=== PATIENT | male | born 1975 | race Caucasian/White ===

== ENCOUNTER → 2016-06-09 | Outpatient (CLI) | payer OTHER ==
[2016-06-09 10:45] LABS: BLOOD UREA NITROGEN 16 mg/dL (7-22); BUN/CREATININE RATIO 13.33 (6-20); CHLORIDE 107 meq/L (98-112); CREATININE 1.2 mg/dL (0.70-1.50); EST GLOMERULAR FILTRATION > 60 (>60 ml/min/1.73m(2)); GLUCOSE 88 mg/dL (78-110); HDL CHOLESTEROL 36 mg/dL (40-150); POTASSIUM 4.3 meq/L (3.8-5.2); SODIUM 140 meq/L (135-145); TRIGLYCERIDES 177 mg/dL (44-200)
[2016-06-09 10:55] LABS: BASOPHILS # (AUTO) 0.02 10*3/UL; BASOPHILS % (AUTO) 0.2 % (0-1); EOSINOPHILS % (AUTO) 1.5 % (0-8); HEMOGLOBIN 15.2 g/dL (14.0-18.0); IMM GRAN % (AUTO) 0.2 % (0-5); IMM GRAN# (AUTO) 0.02 10*3/UL; LYMPHOCYTES # (AUTO) 2.24 10*3/uL; LYMPHOCYTES % (AUTO) 25.2 % (10-50); MEAN CORPUSCULAR HEMOGLOBIN 27.9 PG (27-31); MEAN CORPUSCULAR HGB CONC 34.5 g/dL (33-37); MEAN PLATELET VOLUME 10.8 FL (7.4-12.2); MONOCYTES # (AUTO) 0.52 10*3/UL (0.3-0.8); MONOCYTES % (AUTO) 5.9 % (5-15); NEUTROPHILS # (AUTO) 5.95 10*3/UL; RDW COEFFICIENT OF VARIATION 13.3 % (11.5-14.5); RED BLOOD COUNT 5.45 10^6/uL (4.70-6.10); WHITE BLOOD COUNT 8.88 10^3/uL (4.8-10.8)
[2016-06-09 11:00] LABS: BILIRUBIN,URINE NEGATIVE (NEG); CLARITY,URINE CLEAR (CLEAR); GLUCOSE, URINE (UA) NEGATIVE (NEG); LEUKOCYTE ESTERASE ,URINE NEGATIVE (NEG); NITRATE,URINE NEGATIVE (NEG); OCCULT BLOOD,URINE NEGATIVE (NEG); PROTEIN,URINE TRACE mg/dl (NEG); UROBILINOGEN,URINE 0.2 mg/dL (0.2)
[2016-06-09 11:01] LABS: PLATELET MORPHOLOGY COMMENT NORMAL MORPHOLOGY (NORM)
[2016-06-09 11:11] LABS: URINE SAMPLE TYPE VOIDED SPECIMEN
[2016-06-09 11:13] LABS: SQUAMOUS EPITHELIAL CELL,UR RARE; WBC,URINE 0
[2016-06-09 11:53] LABS: FREE T4 (FREE THYROXINE) 1.12 ng/dL (0.93-1.71)
== END ==
LOC: MOB LAB 09:03
DX: E78.5 Hyperlipidemia, unspecified (principal); E55.9 Vitamin D deficiency, unspecified; I10 Essential (primary) hypertension; T86.10 Unspecified complication of kidney transplant; F17.210 Nicotine dependence, cigarettes, uncomplicated; Z94.0 Kidney transplant status
CPT/HCPCS: 36415; 80048; 80061; 80197; 81001; 82306; 84439; 84443; 85025